=== PATIENT | male | born 2000 | race Two or more races ===

== ENCOUNTER 2023-08-04 19:55 | Emergency (ER) | payer BC, OTHER ==
[~2023-08-04] VITALS: Ht 172.7 cm; Wt 109.0 kg
[2023-08-04] MEDS: LIDOCAINE 1% HCL (LOCAL ANESTH.) INJ 20ML MDV ID ONE (21:30)
[2023-08-04] MEDS ORDERED: ceFAZolin IM 1GM/2.5ML STERILE WATER IM ONE (23:00)
[2023-08-04] MEDS ORDERED: MUPI2OIN2 EX (23:03)
[2023-08-04] MEDS ORDERED: CEPH500C PO (23:03)
[2023-08-04] MEDS ORDERED: HYDR-4902 PO (23:03)
[2023-08-04] MEDS: HYDROcodone-ACET 5/325MG TAB PO ONE (23:35)
[2023-08-04] MEDS: NEOMYCIN-BACITRACIN-POLYM UNITDOSE PKG TOP OINT TOP ONE (23:35)
[2023-08-05 00:46] VITALS: BP 133/87; PULSE 77; RESP 18; TEMP 98.5
[2023-08-05] MEDS: TETANUS-DIPTH-ACEL PERTUSSIS 0.5ML SYR Tdap IM ONE (01:02)
[2023-08-05] MEDS: cefTRIAXone SOD 1,000 MG VL IM ONE (01:03)
[2023-08-05 01:21] VITALS: O2SAT 97
== END 2023-08-05 01:21 | disposition home or self-care (01) ==
LOC: ER 19:55
DX: S61.212A Laceration without foreign body of right middle finger without damage to nail, initial encounter (principal); W26.0XXA Contact with knife, initial encounter; Y93.89 Activity, other specified; Y92.89 Other specified places as the place of occurrence of the external cause; Y99.8 Other external cause status
CPT/HCPCS: 12002; 73130; 90471; 90715; 96372; 99284; J0696; J2001; J0690

== ENCOUNTER 2023-08-14 08:02 | Emergency (ER) | payer BC ==
[~2023-08-14] VITALS: Ht 172.7 cm; Wt 113.0 kg
[~2023-08-14 08:02] MED LIST: CEPH500C PO; HYDR-4902 PO; MUPI2OIN2 EX
[2023-08-14 08:41] VITALS: BP 117/64; PULSE 77; RESP 16; TEMP 98.3; O2SAT 97
== END 2023-08-14 09:02 | disposition home or self-care (01) ==
LOC: ER 08:02
DX: Z48.00 Encounter for change or removal of nonsurgical wound dressing (principal); Z79.899 Other long term (current) drug therapy

== ENCOUNTER 2023-08-21 08:07 | Emergency (ER) | payer BC ==
[~2023-08-21] VITALS: Ht 172.7 cm; Wt 111.0 kg
[2023-08-21 08:34] VITALS: BP 142/79; PULSE 81; RESP 18; TEMP 97.8; O2SAT 95
== END 2023-08-21 08:38 | disposition home or self-care (01) ==
LOC: ER 08:07
DX: S61.212D Laceration without foreign body of right middle finger without damage to nail, subsequent encounter (principal); Z79.899 Other long term (current) drug therapy; X58.XXXD Exposure to other specified factors, subsequent encounter

== ENCOUNTER 2024-03-09 07:49 | Emergency (ER) | payer BC ==
[~2024-03-09] VITALS: Ht 172.7 cm; Wt 105.3 kg
[2024-03-09 08:26] VITALS: BP 132/82; PULSE 80; RESP 18; TEMP 98.1; O2SAT 96
[2024-03-09] MEDS: KETOROLAC TROMETH 60MG/2ML VIAL IM ONE (08:31)
--- NOTE | 2024-03-09 08:31 | ED.PDOC ---
Back pain HPI HPI Comments A 23 YEAR OLD MALE PRESENTS TO THE ED WITH COMPLAINT OF NECK PAIN. PATIENT STATES HE GOT OUT OF THE SHOWER YESTERDAY NIGHT AND TURNED HIS HEAD TOO QUICKLY AND FELT PAIN IN HIS NECK SHORTLY AFTER. PATIENT REPORTS HE IS NOW EXPERIENCING NECK PAIN THAT IS WORSE WITH MOVEMENT. PATIENT DENIES NECK INJURY, FEVER, CHILLS, SHORTNESS OF BREATH, CHEST PAIN, ABDOMINAL PAIN, NAUSEA, VOMITING, HEADACHE, OR OTHER COMPLAINTS. NO OTHER SYMPTOMS OR MODIFYING FACTORS AT THIS TIME. PATIENT IS ALERT, ORIENTED X 4, AND HAS STEADY GAIT. Chief Complaint: Back Pain Time Seen by MD: 08:15 Primary Care Provider: NONE Reviewed Notes: Nurses Notes, Medications, Allergies Allergies: Coded Allergies: NO KNOWN ALLERGIES (Unverified , 08/05/23) Home Meds Active Scripts Cyclobenzaprine Hcl (Cyclobenzaprine Hcl) 10 Mg Tab, 10 MG PO BID, #20 TAB Prov:SAVANNA ONOFRE 03/09/24 Ibuprofen (Ibuprofen) 800 Mg Tab, 1 TAB PO TID, #30 TAB Prov:SAVANNA ONOFRE 03/09/24 Mupirocin (Pseudomonas Fluores (Mupirocin) 2 % Oin, 1 APPLIC EX TID, #15 GM Prov:VJ AYALAA Q [employer] 08/04/23 Hydrocodone-Acetaminophen (Hydrocodone Bitartrate/AC 5-325 mg) 1 Tab Tab, 1 TAB PO Q6HPRN PRN, #10 TAB as needed for pain Prov:ROBERT AYALA [employer] 08/04/23 Cephalexin Monohydrate (Cephalexin) 500 Mg Cap, 1 CAP PO QID for 10 Days, #40 CAP Prov:ROBERT AYALA [employer] 08/04/23 Information Source: Patient Mode of Arrival: Ambulatory Timing: Days Duration: Since onset, Days Location of Back pain: (B) Cervical Severity: Moderate Prehospital treatment: None Quality: Aching, Cramping Onset: Spontaneous History of: None Modifying Factors: Movement Associated signs and symptoms: None Past Medical History PAST MEDICAL HISTORY: Denies Surgical History: Denies all surgeries Family History Family History: Reviewed,noncontributory to illness Social History Smoker: Non-Smoker Alcohol: Denies ETOH Use Drugs: Denies Drug Use Lives In: Home Constitutional: denies: chills, diaphoresis, fatigue, fever, malaise, sweats, weakness, others EENTM: denies: blurred vision, double vision, ear bleeding, ear discharge, ear drainage, ear pain, ear ringing, eye pain, eye redness, hearing loss, mouth pain, mouth swelling, nasal discharge, nose bleeding, nose congestion, nose pain, photophobia, tearing, throat pain, throat swelling, voice changes, others Respiratory: denies: cough, hemoptysis, orthopnea, SOB at rest, shortness of breath, SOB with excertion, stridor, wheezing, others Cardiovascular: denies: chest pain, dizzy spells, diaphoresis, Dyspnea on exertion, edema, irregular heart beat, left arm pain, lightheadedness, palpitations, PND, syncope, others Gastrointestinal: denies: abdomen distended, abdominal pain, blood streaked bowels, constipated, diarrhea, dysphagia, difficulty swallowing, hematemesis, melena, nausea, poor appetite, poor fluid intake, rectal bleeding, rectal pain, vomiting, others Genitourinary: denies: burning, dysuria, flank pain, frequency, hematuria, incontinence, penile discharge, penile sore, pain, testicle pain, testicle swelling, urgency, others Neurological: denies: dizziness, fainting, headache, left sided numbness, left sided weakness, numbness, paresthesia, pre-existing deficit, right sided numbness, right sided weakness, seizure, speech problems, tingling, tremors, weakness, others Musculoskeletal: reports: muscle pain, neck pain; denies: back pain, gout, joint pain, joint swelling, muscle stiffness, others Integumetry: denies: bruises, change in color, change in hair/nails, dryness, laceration, lesions, lumps, rash, wounds, others Allergic/Immunocompromised: denies: Difficulty Healing, Frequent Infections, Hives, Itching, others Hematologic/Lymphatic: denies: anemia, blood clots, easy bleeding, easy bruising, swollen glands, others Endocrine: denies: excessive hunger, excessive sweating, excessive thirst, excessive urination, flushing, intolerance to cold, intolerance to heat, unexplained weight gain, unexplained weight loss, others Psychiatric: denies: anxiety, bipolar disorder, depression, hopeless, panic disorder, schizophrenia, sleepless, suicidal, others All Other Systems: Reviewed and Negative Physical Exam General Appearance: No Apparent Distress, Normal HEENT: Normal ENT Inspection, PERRL/EOMI, Pharynx Normal, TMs Normal Neck: Full Range of Motion, Normal Inspection, Supple, Tender Lateral (TENDERNESS AND MUSCLE SPASM ON LEFT SIDE NECK AND UPPER BACK, NO BONY TENDERNESS, SWELLING AND DEFORMITY. ) Respiratory: Chest Non-Tender, Lungs Clear, No Accessory Muscle Use, No Respiratory Distress, Normal Breath Sounds Cardiovascular: No Edema, No JVD, No Murmur, No Gallop, Normal Peripheral Pulses, Regular Rate/Rhythm Breast Exam: Deferred Gastrointestinal: No Organomegaly, Non Tender, No Pulsatile Mass, Normal Bowel Sounds, Soft Genitalia: Deferred Pelvic: Deferred Rectal: Deferred Extremities: No calf tenderness, Normal capillary refill, Normal inspection, Normal range of motion, Non-tender, No pedal edema Musculoskeletal : Apperance: Normal Neurologic: Alert, lime boiler II-XII nml as Tested, No Motor Deficits, Normal Affect, Normal Mood, No Sensory Deficits Cerebellar Function: Normal Reflexes: Normal Skin: Dry, Normal Color, Warm Peripheral Pulses: 2+ carotid (R), 2+ carotid (L) Lymphatic: No Adenopathy Was a procedure done? Was a procedure done?: No Back Pain Differential Dx Differential Diagnosis: Musculoskeletal Pain Other Differential Diagnosis CERVICAL MUSCLE STRAIN, TORTICOLLIS X-Ray, Labs, Meds, VS Vital Signs Date Time Temp Pulse Resp B/P (MAP) Pulse Ox O2 Delivery O2 Flow Rate FiO2 03/09/24 08:26 80 18 96 Room Air 03/09/24 08:26 98.1 80 18 132/82 (99) 80 98.1 03/09/24 08:15 98.1 80 18 132/82 (99) 96 Current Medications Medications (Trade) Dose Ordered Sig/Can Route Start Time Stop Time Status Last Admin Ketorolac Tromethamine (Toradol Injection) 60 mg ONCE ONCE IM 03/09/24 08:30 03/09/24 08:31 DC 03/09/24 08:31 CERVICAL SPINE RADIOGRAPHS CLINICAL HISTORY: TWISTED NECK TECHNIQUE: 3 views of the cervical spine. Comparison: None FINDINGS/IMPRESSION: The sagittal alignment is anatomic. The cervical vertebral body and disc heights are maintained. There is no prevertebral soft tissue swelling. There are no significant degenerative changes. The dens is intact. HS:Y ATED BY: SAMY OSEI MD DICTATED DATE/TIME: 03/09/24906 SIGNED BY: SAMY OSEI MD SIGNED DATE/TIME: 03/09/24906 CC: X-Ray, Labs, Meds, VS Comment EXTERNAL NOTES: NONE LABS ORDERED: NONE REVIEWED AND INTERPRETED RESULTS: NONE IMAGING ORDERED: XR C-SPINE INDEPENDENT HISTORIANS: NONE TREATMENT ORDERED: TORADOL 60MG IM, HEATING PACK GIVEN TO PATIENT. PATIENT'S CASE AND RESULTS HAVE BEEN DISCUSSED WITH THE ED ATTENDING PHYSICIAN AND THEY AGREE WITH MY PLAN OF CARE. I HAVE INSTRUCTED THE PATIENT TO FOLLOW UP WITH THEIR PCP IN 1-2 DAYS. THE PATIENT FULLY UNDERSTANDS THEIR RESULTS AND ARE AWARE THEY NEED TO FOLLOW UP WITH THEIR PCP FOR FURTHER EVALUATION IF THEIR SYMPTOMS PERSIST. Images Reviewed?: Images reviewed and evaluated by me Time of 1ST Reevaluation: 09:20 Reevaluation 1ST: Improved Patient Education/Counseling: Diagnosis, Treatment, Need For Follow Up Family Education/Counseling: Diagnosis, Treatment, Need For Follow Up Medical Screening: No EMC Exist At This Time Departure 1 Departure Time of Disposition: 09:33 Impression: Primary Impression: Cervical muscle strain Qualified Codes: S16.1XXA - Strain of muscle, fascia and tendon at neck level, initial encounter Disposition: HOME / SELF CARE / HOMELESS Condition: Stable Additional Instructions: FOLLOW-UP WITH PCP IN 1 TO 2 DAYS. TAKE MEDICATIONS PRESCRIBED. RETURN TO ED FOR ANY NEW OR WORSENING SYMPTOMS. e-Prescriptions Cyclobenzaprine Hcl (Cyclobenzaprine Hcl) 10 Mg Tab 10 MG PO BID, #20 TAB Prov: SAVANNA ONOFRE 03/09/24 Ibuprofen (Ibuprofen) 800 Mg Tab 1 TAB PO TID, #30 TAB Prov: SAVANNA ONOFRE 03/09/24 Discharged With: Self, Relative Critical Care Note Critical Care Time?: No Stability Stability form required: No I personally scribed for SAVANNA ONOFRE ([email or web address]) on 03/09/24 at 08:31. Electronically submitted by Lorenzo Anderson ([email or web address]). I personally scribed for SAVANNA ONOFRE ([email or web address]) on 03/09/24 at 09:20. Electronically submitted by Lorenzo Anderson ([email or web address]). SAVANNA ONOFRE Mar 09, 2024 08:31
--- NOTE | 2024-03-09 09:08 | DVH ---
CERVICAL SPINE RADIOGRAPHS CLINICAL HISTORY: TWISTED NECK TECHNIQUE: 3 views of the cervical spine. Comparison: None FINDINGS/IMPRESSION: The sagittal alignment is anatomic. The cervical vertebral body and disc heights are maintained. Ther e is no prevertebral soft tissue swelling. There are no significant degenerative changes. The dens is intact. HS:Y
[2024-03-09] MEDS ORDERED: IBUP-1456 PO (09:20)
[2024-03-09] MEDS ORDERED: CYCL-839 PO (09:20)
== END 2024-03-09 09:26 | disposition home or self-care (01) ==
LOC: ER 07:49
DX: S16.1XXA Strain of muscle, fascia and tendon at neck level, initial encounter (principal); Z79.1 Long term (current) use of non-steroidal anti-inflammatories (NSAID); Z79.899 Other long term (current) drug therapy; X50.3XXA Overexertion from repetitive movements, initial encounter; Y93.89 Activity, other specified; Y92.89 Other specified places as the place of occurrence of the external cause; Y99.8 Other external cause status
CPT/HCPCS: 72040; 96372; 99283; J1885